=== PATIENT | female | born 1930 | race American Indian/Alaskan Native ===

== ENCOUNTER 2017-01-05 20:58 | Emergency (ER) | payer MEDICARE ==
--- NOTE | 2017-01-05 21:23 | Emergency Department Report ---
ED General Adult HPI - General Stated complaint: SEIZURE LIKE ACTIVITY Time Seen by Provider: 01/05/17 21:03 Limitations: Altered Mental Status - History of Present Illness Initial comments: This is a very cute little 82 coming from a snf who apparently had a seizure. I do not have the details involved the seizure however she does apparently have occasional seizures. She is not on any education for this but she did present to our ED last March with a similar presentation. The patient to me describes pain in the left frontal scalp area otherwise states that she is feeling fine. She denies any specific weakness. Of note she is a poor historian in general due to her dementia. She's been eating and drinking fine today otherwise feeling well. -: Sudden Radiation: non-radiation Severity scale (0 -10): 2 Worsens with: none Associated Symptoms: headaches. denies: chest pain, loss of appetite, shortness of breath - Related Data Home Medications Medication Instructions Recorded Confirmed Last Taken ALBUTEROL NEB's [Proventil] 2.5 mg IH Q6H PRN 03/24/16 03/24/16 Unknown Acetaminophen [Tylenol] 650 mg PO Q6HR PRN 03/24/16 03/24/16 Unknown Alendronate Sodium [Fosamax] 70 mg PO QAM 03/24/16 03/24/16 Unknown Budesonide [Pulmicort] 0.5 mg IH Q12HR 03/24/16 03/24/16 Unknown Divalproex Sodium [Divalproex 250 mg PO BID 03/24/16 03/24/16 Unknown Sodium ER] Donepezil HCl 5 mg PO QHS 03/24/16 03/24/16 Unknown ISOSORBIDE MONOnitrate [Imdur ER] 30 mg PO DAILY 03/24/16 03/24/16 Unknown LORazepam [Ativan] 0.5 mg PO Q6H PRN 03/24/16 03/24/16 Unknown QUEtiapine [SEROquel] 25 mg PO DAILY 03/24/16 03/24/16 Unknown QUEtiapine [SEROquel] 25 mg PO Q6H PRN 03/24/16 03/24/16 Unknown QUEtiapine [SEROquel] 50 mg PO QHS PRN 03/24/16 03/24/16 Unknown Sertraline HCl [Zoloft] 50 mg PO DAILY 03/24/16 03/24/16 Unknown Tiotropium [Spiriva] 18 mcg IH QDAY 03/24/16 03/24/16 Unknown Verapamil [Calan] 120 mg PO DAILY 03/24/16 03/24/16 Unknown guaiFENesin DM [Robitussin Dm] 10 ml PO Q6HR PRN 03/24/16 03/24/16 Unknown Allergies Allergy/AdvReac Type Severity Reaction Status Date / Time No Known Allergies Allergy Unverified 03/24/16 14:56 ED Review of Systems ROS: Stated complaint: SEIZURE LIKE ACTIVITY Other details as noted in HPI Comment: Unobtainable due to pts medical conditions (due to dementia) Constitutional: denies: fever Eyes: denies: vision change ENT: denies: throat pain Respiratory: denies: cough Cardiovascular: denies: chest pain, dyspnea on exertion Gastrointestinal: denies: abdominal pain, nausea, vomiting Neurological: headache. denies: weakness ED Past Medical Hx - Past Medical History Hx Hypertension: Yes Hx CVA: Yes Hx Psychiatric Treatment: Yes (depression) Hx COPD: Yes Hx Dementia: Yes Additional medical history: "I've had a seizure once before".. no meds - Social History Smoking Status: Never Smoker Substance Use Type: None - Medications Home Medications: Home Medications Medication Instructions Recorded Confirmed Last Taken Type ALBUTEROL NEB's [Proventil] 2.5 mg IH Q6H PRN 03/24/16 03/24/16 Unknown History Acetaminophen [Tylenol] 650 mg PO Q6HR PRN 03/24/16 03/24/16 Unknown History Alendronate Sodium [Fosamax] 70 mg PO QAM 03/24/16 03/24/16 Unknown History Budesonide [Pulmicort] 0.5 mg IH Q12HR 03/24/16 03/24/16 Unknown History Divalproex Sodium [Divalproex 250 mg PO BID 03/24/16 03/24/16 Unknown History Sodium ER] Donepezil HCl 5 mg PO QHS 03/24/16 03/24/16 Unknown History ISOSORBIDE MONOnitrate [Imdur ER] 30 mg PO DAILY 03/24/16 03/24/16 Unknown History LORazepam [Ativan] 0.5 mg PO Q6H PRN 03/24/16 03/24/16 Unknown History QUEtiapine [SEROquel] 25 mg PO DAILY 03/24/16 03/24/16 Unknown History QUEtiapine [SEROquel] 25 mg PO Q6H PRN 03/24/16 03/24/16 Unknown History QUEtiapine [SEROquel] 50 mg PO QHS PRN 03/24/16 03/24/16 Unknown History Sertraline HCl [Zoloft] 50 mg PO DAILY 03/24/16 03/24/16 Unknown History Tiotropium [Spiriva] 18 mcg IH QDAY 03/24/16 03/24/16 Unknown History Verapamil [Calan] 120 mg PO DAILY 03/24/16 03/24/16 Unknown History guaiFENesin DM [Robitussin Dm] 10 ml PO Q6HR PRN 03/24/16 03/24/16 Unknown History ED Physical Exam - General General appearance: alert, in no apparent distress - Head Head exam: Present: atraumatic, normocephalic, other (no tenderness to palpation. No temporal artery region tenderness.) - Eye Eye exam: Present: normal appearance, EOMI, other (4 mm sluggish pupils bilaterally.). Absent: scleral icterus - ENT ENT exam: Present: mucous membranes dry, mucous membranes moist, other (no oral lesions noted. Poor dentition in general.) - Neck Neck exam: Present: normal inspection, full ROM, other (no posterior neck tenderness.). Absent: meningismus, lymphadenopathy - Respiratory Respiratory exam: Present: normal lung sounds bilaterally. Absent: respiratory distress - Cardiovascular Cardiovascular Exam: Present: regular rate, normal rhythm. Absent: systolic murmur, diastolic murmur, rubs, gallop - GI/Abdominal GI/Abdominal exam: Present: soft, normal bowel sounds. Absent: tenderness, guarding - Extremities Exam Extremities exam: Present: normal inspection - Back Exam Back exam: Present: normal inspection - Neurological Exam Neurological exam: Present: alert, other ( hand readily with the right hand. Has moderate to good strength noted in the right leg as well. Has seen any weakness in the left arm and leg. Is able to slowly correct her left hand toward me but has some difficulty with this task.) - Psychiatric Psychiatric exam: Present: normal affect, normal mood - Skin Skin exam: Present: warm, dry, intact, normal color. Absent: rash ED Course Vital Signs 04/05/17 04/05/17 04/05/17 21:22 21:30 21:40 Temperature 97.8 F Pulse Rate 69 70 67 Respiratory 15 12 12 Rate Blood Pressure 110/62 O2 Sat by Pulse 98 98 Oximetry 01/05/17 01/05/17 01/05/17 21:50 22:00 22:10 Temperature Pulse Rate 67 66 Respiratory 13 13 12 Rate Blood Pressure 106/66 106/66 107/51 O2 Sat by Pulse 100 98 Oximetry 01/05/17 01/05/17 01/06/17 23:46 23:50 00:00 Temperature Pulse Rate 69 Respiratory 12 13 Rate Blood Pressure 107/51 107/51 143/75 O2 Sat by Pulse 97 99 98 Oximetry 01/06/17 01/06/17 01/06/17 00:10 00:20 00:30 Temperature Pulse Rate 64 64 Respiratory 14 9 L Rate Blood Pressure 143/75 107/51 132/72 O2 Sat by Pulse 99 100 99 Oximetry - Reevaluation(s) Reevaluation #1: 01/05/17 22:13 I did report U the ED notes from March of last year. Full workup was done and no infectious etiology was noted. Patient does not have a known seizure disorder. My suspicion with this second seizure is that she likely has some conversion with the prior stroke that she has had as the etiology and the impetus for the seizure. I'm not inclined to start her on anticonvulsants at this time. I feel that she is finding continue with her current regimen of medications. She appears to be essentially at her baseline from a neuro logical and mental status standpoint. ED Medical Decision Making - Lab Data Result diagrams: 01/05/17 22:56 01/05/17 22:56 Critical care attestation.: If time is entered above; I have spent that time in minutes in the direct care of this critically ill patient, excluding procedure time. ED Disposition Clinical Impression: Seizure, Renal insufficiency Disposition: DISCHARGED TO HOME OR SELFCARE Is pt being admited?: No Does the pt Need Aspirin: No Condition: Stable Additional Instructions: Your depakote level is 26. This is low. Consider increasing the dose on the depakote. Referrals: MARY VALLE MD [Primary Care Provider] - 3-5 Days Time of Disposition: 00:43
[2017-01-05] MEDS ORDERED: NACL 0.9% 1000 ML 1,000 ML IV ONE (21:49)
--- NOTE | 2017-01-05 23:01 | Cat Scan Report ---
FINAL REPORT PROCEDURE: CT HEAD/BRAIN WO CON TECHNIQUE: Computerized tomography of the head was performed without contrast material. HISTORY: seizure COMPARISON: Prior CT scan of the brain 03/24/2016 FINDINGS: Brain: There is no evidence of intracranial hemorrhage. No parenchymal hemorrhage is seen. No mass lesions or mass effect is identified. No abnormal extra-axial fluid collections or masses are seen. Stable old area of encephalomalacia again visualized in the left occipital lobe. There is a new area of mature encephalomalacia seen in the right occipital lobe which was not visualized on the prior study. Small old area of encephalomalacia also again visualized in the right periventricular white matter extending inferiorly into the inferior lateral aspect of the right basal ganglia which is unchanged. Additional small old lacunar infarcts seen medially in the right basal ganglia. There is some decreased density seen in the periventricular white matter without mass effect. This is fairly symmetric and does not exhibit any mass effect consistent with gliosis probably on the basis of microvascular disease or white matter changes of aging. Ventricles: The ventricles, sulcal pattern and fissures are prominent consistent with atrophy. Bones: No evidence of acute fracture. Paranasal sinuses: Nodular mucosal thickening is visualized in both maxillary sinuses as well as small amount of fluid in both maxillary sinuses. There is also a small amount of fluid in both sphenoid sinuses and patchy mucosal disease in several of the ethmoid air cells. Mastoid air cells: clear IMPRESSION: Old areas of encephalomalacia again visualize left occipital lobe right periventricular white matter extending into the lateral aspect of the right basal ganglia and small old lacunar infarct medial aspect right basal ganglia. There is a new, however, mature area of encephalomalacia now seen in the right occipital lobe. No acute intracranial abnormalities are identified. There is evidence of moderate atrophy and gliosis. Paranasal sinus disease with mucosal thickening and air-fluid level suggesting acute sinusitis.
[2017-01-05 23:13] LABS: Basophils % (Auto) 0.3 % (0.0-1.8); Eosinophils % (Auto) 2.2 % (0.0-4.3); Hematocrit 38.5 % (30.3-42.9); Hemoglobin 12.7 gm/dl (10.1-14.3); Mean Corpuscular HGB Conc 33 % (30-34); Mean Corpuscular Hemoglobin 29 pg (28-32); Mean Corpuscular Volume 89 fl (79-97); Platelet Count 143 K/mm3 (140-440); Red Blood Count 4.35 M/mm3 (3.65-5.03)
[2017-01-05 23:32] LABS: Albumin 3.5 g/dL (3.9-5); Albumin/Globulin Ratio 1.2 %; Alkaline Phosphatase 60 units/L (35-129); Anion Gap 17 mmol/L; BUN/Creatinine Ratio 14.61; Bilirubin,Total 0.3 mg/dL (0.1-1.2); Blood Urea Nitrogen 19 mg/dL (7-17); Calcium 8.6 mg/dL (8.4-10.2); Carbon Dioxide 25 mmol/L (22-30); Chloride 101.7 mmol/L (98-107); Glucose 105 mg/dL (65-100); Potassium 3.6 mmol/L (3.6-5.0); Sodium 140 mmol/L (137-145); Total Protein 6.5 g/dL (6.3-8.2)
[2017-01-05 23:50] LABS: Alanine Aminotransferase < 5 units/L (7-56)
[2017-01-06 00:23] LABS: Bilirubin,Urine NEG (Negative); Blood,Urine SM (Negative); Ketones,Urine NEG (Negative); Leukocyte Esterase,Urine TR (Negative); Nitrite,Urine NEG (Negative); Protein,Urine <15 mg/dL mg/dL (Negative); RBC,Urine < 1.0 /HPF (0.0-6.0); Urobilinogen,Urine < 2.0 mg/dL (<2.0); WBC,Urine < 1.0 /HPF (0.0-6.0)
[2017-01-06 01:18] VITALS: BP 130/67
== END 2017-01-06 02:12 | disposition home or self-care (01) ==
LOC: ED 20:58
DX: R56.9 Unspecified convulsions (principal); N28.9 Disorder of kidney and ureter, unspecified; I10 Essential (primary) hypertension; F03.90 Unspecified dementia, unspecified severity, without behavioral disturbance, psychotic disturbance, mood disturbance, and anxiety; F31.9 Bipolar disorder, unspecified; Z86.73 Personal history of transient ischemic attack (TIA), and cerebral infarction without residual deficits
CPT/HCPCS: 36415; 70450; 80053; 80164; 81001; 85025; 96360; 99284; J7030

== ENCOUNTER 2017-01-08 08:43 | Emergency (ER) | payer MEDICARE ==
[2017-01-08 10:00] LABS: Bacteria,Urine 1+ /HPF (Negative); Bilirubin,Urine NEG (Negative); Blood,Urine SM (Negative); Ketones,Urine NEG (Negative); Leukocyte Esterase,Urine TR (Negative); Nitrite,Urine NEG (Negative); Protein,Urine <15 mg/dL mg/dL (Negative); Urobilinogen,Urine < 2.0 mg/dL (<2.0)
--- NOTE | 2017-01-08 10:06 | Cat Scan Report ---
CT HEAD WITHOUT CONTRAST: HISTORY: Head injury. A right frontoparietal scalp hematoma is identified measuring 1.2 cm in thickness. There is no evidence for calvarial fracture. Moderate volume loss, chronic White matter changes, bilateral chronic lacunar infarcts in the basal ganglia, and bilateral occipital infarcts are unchanged since 01/05/17. There is no evidence for intraparenchymal hemorrhage or extra-axial fluid collection. Ventricular size remains within normal limits. Advanced sinus disease is again noted. IMPRESSION: Right scalp hematoma. No acute intracranial process appreciated. Chronic findings as outlined above.
--- NOTE | 2017-01-08 10:08 | Cat Scan Report ---
CT SCAN OF THE CERVICAL SPINE: HISTORY: Neck pain after fall, injury. TECHNIQUE: Contiguous 1.25 mm axial images of the cervical spine were obtained. Sagittal and coronal reformatted images. FINDINGS: There is mild levoscoliosis of the cervical spine on the coronal images. Moderate to severe multilevel degenerative disc disease and facet arthropathy are identified. Bilateral neural foraminal narrowing is suspected at C5-6 and C6-7. No obvious fracture, bone lesion or subluxation. The prevertebral soft tissues are normal thickness. IMPRESSION: Scoliosis with advanced multilevel degenerative change. No acute process is noted.
[2017-01-08] MEDS ORDERED: BOOSTRIX IM ONE (10:13)
--- NOTE | 2017-01-08 10:13 | Emergency Department Report ---
ED Fall HPI - General Chief Complaint: Head Injury Stated Complaint: FALL AND HIT HEAD Time Seen by Provider: 01/08/17 09:15 Source: patient, EMS, RN notes reviewed Mode of arrival: Stretcher Limitations: Other (patient partially demented, poor historian.) - History of Present Illness Initial Comments: This is an 86-year-old female. She is previously known to me. She is brought to the hospital by EMS from local [facility]. Past medical history includes COPD, hypertension, dementia, advanced age. Primary care DrSukumar Valle Case is discussed with the nurse at the facility, Ms. Kylah Schuler. Miss Bates indicates that the patient was seen in bed at 7:00 AM. She was found on the floor at 7:15 AM. Uncertain how the patient ended up on the floor. The patient does not recall falling on the floor. The patient claims of mild headache. There is no chest pain, there is no shortness of breath, there is no abdominal pain. Patient has no extremity weakness, patient has no extremity numbness. Patient is currently alert to name and location, follows commands and is pleasant. As per corroborating nurse Miss Bates, this is the patient's typical baseline status. Patient has not complained of chest pain, shortness of breath, has not specifically complained of loss of consciousness. MD Complaint: fall (possible fall) When Fall Occurred: unsure, 1 hour [employer] Fall Witnessed: no Place Fall Occurred: [facility] Loss of Consciousness: none, unsure Prolonged Down Time?: no Symptoms Prior to Fall: none Location: head Quality: other (patient cannot describe the qualitative nature of the pain, cannot describe exacerbating or relieving factors) Context: other (as per history of present illness) Associated Symptoms: headache - Related Data Home Medications Medication Instructions Recorded Confirmed Last Taken ALBUTEROL NEB's [Proventil] 2.5 mg IH Q6H PRN 03/24/16 03/24/16 Unknown Acetaminophen [Tylenol] 650 mg PO Q6HR PRN 03/24/16 03/24/16 Unknown Alendronate Sodium [Fosamax] 70 mg PO QAM 03/24/16 03/24/16 Unknown Budesonide [Pulmicort] 0.5 mg IH Q12HR 03/24/16 03/24/16 Unknown Divalproex Sodium [Divalproex 250 mg PO BID 03/24/16 03/24/16 Unknown Sodium ER] Donepezil HCl 5 mg PO QHS 03/24/16 03/24/16 Unknown ISOSORBIDE MONOnitrate [Imdur ER] 30 mg PO DAILY 03/24/16 03/24/16 Unknown LORazepam [Ativan] 0.5 mg PO Q6H PRN 03/24/16 03/24/16 Unknown QUEtiapine [SEROquel] 25 mg PO DAILY 03/24/16 03/24/16 Unknown QUEtiapine [SEROquel] 25 mg PO Q6H PRN 03/24/16 03/24/16 Unknown QUEtiapine [SEROquel] 50 mg PO QHS PRN 03/24/16 03/24/16 Unknown Sertraline HCl [Zoloft] 50 mg PO DAILY 03/24/16 03/24/16 Unknown Tiotropium [Spiriva] 18 mcg IH QDAY 03/24/16 03/24/16 Unknown Verapamil [Calan] 120 mg PO DAILY 03/24/16 03/24/16 Unknown guaiFENesin DM [Robitussin Dm] 10 ml PO Q6HR PRN 03/24/16 03/24/16 Unknown Previous Rx's Medication Instructions Recorded Last Taken Type Nitrofurantoin Dundy/M-Cryst 100 mg PO Q12HR #14 capsule 01/08/17 Unknown Rx [Macrobid CAP] Allergies Allergy/AdvReac Type Severity Reaction Status Date / Time No Known Allergies Allergy Unverified 03/24/16 14:56 ED Review of Systems ROS: Stated complaint: FALL AND HIT HEAD Other details as noted in HPI Comment: Unobtainable due to pts medical conditions ([facility]) Constitutional: denies: fever Eyes: denies: vision change ENT: denies: epistaxis Respiratory: denies: cough Cardiovascular: denies: chest pain Gastrointestinal: nausea Genitourinary: as per HPI Skin: lesions Neurological: as per HPI Psychiatric: as per HPI Hematological/Lymphatic: as per HPI ED Past Medical Hx - Past Medical History Hx Hypertension: Yes Hx CVA: Yes Hx Psychiatric Treatment: Yes (depression, dementia) Hx COPD: Yes Hx Dementia: Yes Additional medical history: "I've had a seizure once before".. no meds - Social History Smoking Status: Never Smoker Substance Use Type: None - Medications Home Medications: Home Medications Medication Instructions Recorded Confirmed Last Taken Type ALBUTEROL NEB's [Proventil] 2.5 mg IH Q6H PRN 03/24/16 03/24/16 Unknown History Acetaminophen [Tylenol] 650 mg PO Q6HR PRN 03/24/16 03/24/16 Unknown History Alendronate Sodium [Fosamax] 70 mg PO QAM 03/24/16 03/24/16 Unknown History Budesonide [Pulmicort] 0.5 mg IH Q12HR 03/24/16 03/24/16 Unknown History Divalproex Sodium [Divalproex 250 mg PO BID 03/24/16 03/24/16 Unknown History Sodium ER] Donepezil HCl 5 mg PO QHS 03/24/16 03/24/16 Unknown History ISOSORBIDE MONOnitrate [Imdur ER] 30 mg PO DAILY 03/24/16 03/24/16 Unknown History LORazepam [Ativan] 0.5 mg PO Q6H PRN 03/24/16 03/24/16 Unknown History QUEtiapine [SEROquel] 25 mg PO DAILY 03/24/16 03/24/16 Unknown History QUEtiapine [SEROquel] 25 mg PO Q6H PRN 03/24/16 03/24/16 Unknown History QUEtiapine [SEROquel] 50 mg PO QHS PRN 03/24/16 03/24/16 Unknown History Sertraline HCl [Zoloft] 50 mg PO DAILY 03/24/16 03/24/16 Unknown History Tiotropium [Spiriva] 18 mcg IH QDAY 03/24/16 03/24/16 Unknown History Verapamil [Calan] 120 mg PO DAILY 03/24/16 03/24/16 Unknown History guaiFENesin DM [Robitussin Dm] 10 ml PO Q6HR PRN 03/24/16 03/24/16 Unknown History Nitrofurantoin Dundy/M-Cryst 100 mg PO Q12HR #14 capsule 01/08/17 Unknown Rx [Macrobid CAP] ED Physical Exam - General Limitations: Other (patient demented, poor historian. She is pleasant, follows commands) General appearance: alert, in no apparent distress - Head Head exam: Present: atraumatic, normocephalic - Eye Eye exam: Present: normal appearance, EOMI, other (bilateral arcus senilis) - ENT ENT exam: Present: normal exam, normal orophraynx, mucous membranes moist, TM's normal bilaterally, normal external ear exam, other (patient has poor dentition. There is no nasal septal hematoma. There is no hemotympanum.) - Neck Neck exam: Present: normal inspection, full ROM. Absent: tenderness, meningismus - Respiratory Respiratory exam: Present: normal lung sounds bilaterally. Absent: respiratory distress, wheezes, rales, rhonchi, stridor, decreased breath sounds - Cardiovascular Cardiovascular Exam: Present: regular rate, normal rhythm, normal heart sounds. Absent: bradycardia, tachycardia, irregular rhythm, systolic murmur, diastolic murmur, rubs, gallop - GI/Abdominal GI/Abdominal exam: Present: soft, normal bowel sounds. Absent: distended, tenderness, guarding, rebound, rigid, pulsatile mass - Extremities Exam Extremities exam: Present: normal inspection, full ROM, normal capillary refill , other (is no long bony tenderness. The pelvis is stable. Compartments are soft. There are 2+ pulses in 4 extremities.). Absent: tenderness, pedal edema , joint swelling, calf tenderness - Back Exam Back exam: Present: normal inspection, full ROM. Absent: tenderness, CVA tenderness (R), CVA tenderness (L), muscle spasm, paraspinal tenderness, vertebral tenderness - Neurological Exam Neurological exam: Present: alert, oriented X3, other (Extraocular movements intact. Tongue midline. No facial droop. Facial sensation intact to light touch in the V1, V2, V3 distribution bilaterally. 5 and 5 strength in 4 extremities.. Sensation is intact to light touch in 4 extremities.). Absent: motor sensory deficit - Psychiatric Psychiatric exam: Present: normal affect, normal mood - Skin Skin exam: Present: warm, dry, intact, normal color. Absent: rash ED Course Vital Signs 01/08/17 01/08/17 01/08/17 09:12 11:30 12:07 Temperature 98 F 98 F Pulse Rate 73 72 70 Respiratory 13 16 16 Rate Blood Pressure 169/83 183/91 196/99 [Right] O2 Sat by Pulse 100 100 100 Oximetry 01/08/17 14:37 Temperature Pulse Rate 72 Respiratory 16 Rate Blood Pressure 168/99 [Right] O2 Sat by Pulse 96 Oximetry - Reevaluation(s) Reevaluation #1: 01/08/17 11:56 Differential diagnosis: Mechanical fall, scalp hematoma, intracranial injury, cervical spine injury, pneumonia, urinary tract infection assessment and plan: 86-year-old female status post probable mechanical fall. She has been observed in the ER for over 4 hours, and has had normal vital signs , no evidence of arrhythmia. Her neurologic exam appears to be at her baseline. She is given a tetanus vaccination. Urinalysis is equivocal for urinary tract infection. She will be discharged with Macrobid. Her EKG is morphologically unchanged from prior. I don't believe she requires hospital admission at this time. She will be discharged. Return precautions are extensively reviewed. 01/08/17 11:59 Reevaluation #2: 01/08/17 12:22 hypertension is appreciated, this is chronic. Patient is asymptomatic. Patient does not medically require emergent decrease of her blood pressure. it can be followed up by her outpatient primary care doctor. ED Medical Decision Making - Lab Data Result diagrams: 01/08/17 10:19 01/08/17 10:19 Vital Signs 01/08/17 09:12 Temperature 98 F Pulse Rate 73 Respiratory 13 Rate Blood Pressure 169/83 [Right] O2 Sat by Pulse 100 Oximetry Lab Results 01/08/17 01/08/17 01/08/17 Range/Units 09:41 10:19 10:19 WBC 7.3 (4.5-11.0) K/mm3 RBC 4.44 (3.65-5.03) M/mm3 Hgb 12.7 (10.1-14.3) gm/dl Hct 39.0 (30.3-42.9) % MCV 88 (79-97) fl MCH 29 (28-32) pg MCHC 33 (30-34) % RDW 16.1 H (13.2-15.2) % Plt Count 154 (140-440) K/mm3 PT 14.2 (12.2-14.9) Sec. INR 1.11 (0.87-1.13) Sodium (137-145) mmol/L Potassium (3.6-5.0) mmol/L Chloride (98-107) mmol/L Carbon Dioxide (22-30) mmol/L Anion Gap mmol/L BUN (7-17) mg/dL Creatinine (0.7-1.2) mg/dL Estimated GFR ml/min BUN/Creatinine Ratio % Glucose (65-100) mg/dL Calcium (8.4-10.2) mg/dL Total Creatine Kinase (30-135) units/L Urine Color Straw (Yellow) Urine Turbidity Clear (Clear) Urine pH 7.0 (5.0-7.0) Ur Specific [place] 1.012 (1.003-1.030) Urine Protein <15 mg/dl (Negative) mg/dL Urine Glucose (UA) Neg (Negative) mg/dL Urine Ketones Neg (Negative) mg/dL Urine Blood Sm (Negative) Urine Nitrite Neg (Negative) Urine Bilirubin Neg (Negative) Urine Urobilinogen < 2.0 (<2.0) mg/dL Ur Leukocyte Esterase Tr (Negative) Urine WBC (Auto) 11.0 H (0.0-6.0) /HPF Urine RBC (Auto) 9.0 (0.0-6.0) /HPF U Epithel Cells (Auto) < 1.0 (0-13.0) /HPF Urine Bacteria (Auto) 1+ (Negative) /HPF Hyaline Casts 1 /LPF Valproic Acid (50-100) ug/mL 01/08/17 01/08/17 Range/Units 10:19 10:19 WBC (4.5-11.0) K/mm3 RBC (3.65-5.03) M/mm3 Hgb (10.1-14.3) gm/dl Hct (30.3-42.9) % MCV (79-97) fl MCH (28-32) pg MCHC (30-34) % RDW (13.2-15.2) % Plt Count (140-440) K/mm3 PT (12.2-14.9) Sec. INR (0.87-1.13) Sodium 140 (137-145) mmol/L Potassium 4.6 D (3.6-5.0) mmol/L Chloride 102.0 (98-107) mmol/L Carbon Dioxide 27 (22-30) mmol/L Anion Gap 16 mmol/L BUN 16 (7-17) mg/dL Creatinine 1.1 (0.7-1.2) mg/dL Estimated GFR 57 ml/min BUN/Creatinine Ratio 14.54 % Glucose 82 (65-100) mg/dL Calcium 8.6 (8.4-10.2) mg/dL Total Creatine Kinase 118 (30-135) units/L Urine Color (Yellow) Urine Turbidity (Clear) Urine pH (5.0-7.0) Ur Specific [place] (1.003-1.030) Urine Protein (Negative) mg/dL Urine Glucose (UA) (Negative) mg/dL Urine Ketones (Negative) mg/dL Urine Blood (Negative) Urine Nitrite (Negative) Urine Bilirubin (Negative) Urine Urobilinogen (<2.0) mg/dL Ur Leukocyte Esterase (Negative) Urine WBC (Auto) (0.0-6.0) /HPF Urine RBC (Auto) (0.0-6.0) /HPF U Epithel Cells (Auto) (0-13.0) /HPF Urine Bacteria (Auto) (Negative) /HPF Hyaline Casts /LPF Valproic Acid 55.6 (50-100) ug/mL - EKG Data -: EKG Interpreted by Mt EKG shows normal: sinus rhythm, axis (left axis) - EKG Data Interpretation: unchanged when compared t (24 march 2016) 01/08/17 11:57 Normal sinus, 69 bpm, QTC 465 ms, left axis deviation, poor R wave progression, not morphologically consistent with STEMI, appears unchanged when compared to prior EKG from 03/24/2016 01/08/17 11:59 - Radiology Data Radiology results: report reviewed, image reviewed ct head shows hematoma on scalp ct c spine neg xr chest negative xr pelvis negative Critical care attestation.: If time is entered above; I have spent that time in minutes in the direct care of this critically ill patient, excluding procedure time. ED Disposition Clinical Impression: Fall, Scalp hematoma Disposition: DC/TX ANOTHER TYPE HEALTHCARE Is pt being admited?: No Does the pt Need Aspirin: No Condition: Good Instructions: Fall Prevention (ED) Additional Instructions: Continue current outpatient medications. Follow up with primary care physician within the next 3-5 days. Take antibiotics as directed for possible urinary tract infection. Return to the ER right away with fevers and chills, chest pain or shortness of breath, intractable nausea or vomiting, convulsive activity , inability to tolerate liquid feeds, new, worsening or different symptoms. Prescriptions: Nitrofurantoin Dundy/M-Cryst [Macrobid CAP] 100 mg PO Q12HR #14 capsule Referrals: MARY VALLE MD [Primary Care Provider] - 3-5 Days
[2017-01-08 10:28] LABS: Hemoglobin 12.7 gm/dl (10.1-14.3); Mean Corpuscular HGB Conc 33 % (30-34); Mean Corpuscular Hemoglobin 29 pg (28-32); Mean Corpuscular Volume 88 fl (79-97); Platelet Count 154 K/mm3 (140-440); Red Blood Count 4.44 M/mm3 (3.65-5.03); Red Cell Distribution Width 16.1 % (13.2-15.2); White Blood Count 7.3 K/mm3 (4.5-11.0)
[2017-01-08 10:44] LABS: INR 1.11 (0.87-1.13)
[2017-01-08 10:46] LABS: BUN/Creatinine Ratio 14.54; Calcium 8.6 mg/dL (8.4-10.2); Potassium 4.6 mmol/L (3.6-5.0)
--- NOTE | 2017-01-08 11:02 | XRay Report ---
AP PELVIS: History: Hip pain, pelvic pain after fall. AP view of the pelvis shows normal pelvic contour and soft tissues. The hips are symmetric and within normal limits as are the sacroiliac joints. IMPRESSION: Normal pelvis.
--- NOTE | 2017-01-08 11:02 | XRay Report ---
AP CHEST: HISTORY: chest pain AP view of the chest demonstrates a normal mediastinal and cardiac contour with clear lungs and normal bony and soft tissue structures. IMPRESSION: No acute cardiopulmonary process appreciated.
[2017-01-08 14:38] VITALS: BP 168/99
== END 2017-01-08 14:38 | disposition other institution (70) ==
LOC: ED 08:43
DX: S00.03XA Contusion of scalp, initial encounter (principal); W18.30XA Fall on same level, unspecified, initial encounter; Y93.9 Activity, unspecified; Y92.9 Unspecified place or not applicable; Y99.9 Unspecified external cause status; I10 Essential (primary) hypertension; J44.9 Chronic obstructive pulmonary disease, unspecified; F03.90 Unspecified dementia, unspecified severity, without behavioral disturbance, psychotic disturbance, mood disturbance, and anxiety
CPT/HCPCS: 36415; 70450; 71010; 72125; 72170; 80048; 80164; 81001; 82550; 85027; 85610; 90471; 90715; 93005; 93010; 99285

== ENCOUNTER 2021-03-03 18:48 | Emergency (ER) | payer MEDICARE ==
--- NOTE | 2021-03-03 19:31 | Emergency Department Report ---
HPI - General Chief Complaint: Fall Time Seen by Provider: 03/03/21 19:19 - HPI HPI: This is an 89-year-old -[place] female who presents to the emergency department via EMS from her [facility] long-term facility after she had an unwitnessed fall from bed, which was about 2 feet high. The patient has a history of dementia, schizophrenia, COPD, and is AAO x1 to name only. Initially, for EMS, she complained of some low back pain. During my initial examination the patient has no complaints. [facility] told EMS that it is their policy to send in any unwitnessed fall to the emergency department for evaluation. The patient is a poor historian secondary to her chronic medical conditions. There is no obvious evidence of trauma. ED Past Medical Hx - Past Medical History Hx Hypertension: Yes Hx CVA: Yes Hx Psychiatric Treatment: Yes (depression, dementia) Hx COPD: Yes Hx Dementia: Yes Additional medical history: "I've had a seizure once before".. no meds - Social History Smoking Status: Never Smoker - Medications Home Medications: Home Medications Medication Instructions Recorded Confirmed Last Taken Type ALBUTEROL NEB's [Proventil] 2.5 mg IH Q6H PRN 03/24/16 03/24/16 Unknown History Acetaminophen [Tylenol] 650 mg PO Q6HR PRN 03/24/16 03/24/16 Unknown History Alendronate Sodium [Fosamax] 70 mg PO QAM 03/24/16 03/24/16 Unknown History Budesonide [Pulmicort] 0.5 mg IH Q12HR 03/24/16 03/24/16 Unknown History Divalproex Sodium [Divalproex 250 mg PO BID 03/24/16 03/24/16 Unknown History Sodium ER] Donepezil HCl 5 mg PO QHS 03/24/16 03/24/16 Unknown History ISOSORBIDE MONOnitrate [Imdur ER] 30 mg PO DAILY 03/24/16 03/24/16 Unknown History LORazepam [Ativan] 0.5 mg PO Q6H PRN 03/24/16 03/24/16 Unknown History QUEtiapine [SEROquel] 25 mg PO DAILY 03/24/16 03/24/16 Unknown History QUEtiapine [SEROquel] 25 mg PO Q6H PRN 03/24/16 03/24/16 Unknown History QUEtiapine [SEROquel] 50 mg PO QHS PRN 03/24/16 03/24/16 Unknown History Sertraline HCl [Zoloft] 50 mg PO DAILY 03/24/16 03/24/16 Unknown History Tiotropium [Spiriva] 18 mcg IH QDAY 03/24/16 03/24/16 Unknown History guaiFENesin DM [Robitussin Dm] 10 ml PO Q6HR PRN 03/24/16 03/24/16 Unknown History verapamiL [Calan] 120 mg PO DAILY 03/24/16 03/24/16 Unknown History Nitrofurantoin [place]/M-Cryst 100 mg PO Q12HR #14 capsule 01/08/17 Unknown Rx [Macrobid CAP] ED Review of Systems ROS: Stated complaint: FALL/LOWER BACK PAIN Other details as noted in HPI Comment: Unobtainable due to pts medical conditions Physical Exam - Physical Exam Vital Signs: Vital Signs 03/03/21 19:23 Temperature 98.7 F Pulse Rate 77 Respiratory 20 Rate Blood Pressure 154/79 O2 Sat by Pulse 100 Oximetry Physical Exam: GENERAL: The patient is well-developed well-nourished. HENT: Normocephalic. Atraumatic. Patient has moist mucous membranes. EYES: Extraocular motions are intact. NECK: Supple. Trachea is midline. CHEST/LUNGS: Clear to auscultation. There is no respiratory distress noted. HEART/CARDIOVASCULAR: Regular. There is no tachycardia. There is no murmur. ABDOMEN: Abdomen is soft, nontender. Patient has normal bowel sounds. There is no abdominal distention. SKIN: Skin is warm and dry. NEURO: The patient is awake and cooperative, but confused. AAO x1. Cranial nerves II through XII grossly intact. No facial asymmetry. MUSCULOSKELETAL: There is no tenderness or deformity. There is no limitation range of motion. BACK: No midline thoracic or lumbar tenderness to palpation. ED Course Vital Signs 03/03/21 19:23 Temperature 98.7 F Pulse Rate 77 Respiratory 20 Rate Blood Pressure 154/79 O2 Sat by Pulse 100 Oximetry ED Medical Decision Making - Radiology Data Radiology results: report reviewed, image reviewed interpreted by me: Chest x-ray does not show any acute process. There are no pleural effusions, obvious pneumonia and there is no pneumothorax. No widened mediastinum. No obvious rib fractures. X-ray of the thoracic and lumbar spine do not show any fracture, subluxation, or any acute process. X-ray of the pelvis does not show any fracture, dislocation, or any acute process. NONENHANCED CT SCAN OF THE HEAD: INDICATION / CLINICAL INFORMATION: 89 years Female; MAIN. Trauma TECHNIQUE: Routine CT head without contrast. All CT scans at this location are performed using CT dose reduction for ALARA by means of automated exposure control. COMPARISON: None. FINDINGS: BRAIN / INTRACRANIAL CONTENTS: No intracranial sequela from the trauma; no scalp hematoma; no there is fluid accumulation in the in both maxillary sinuses, CT attenuation is is suggestive of serous fluid and not that of blood No acute hemorrhage, mass effect, midline shift, hydrocephalus, or acute, large territorial infarct. Encephalomalacia in both occipital lobes larger on the right side; en cephalomalacia in the right corpus stratum with compensatory enlargement of right frontal horn; chronic ischemic changes in the left basal ganglia; periventricular low-attenuation areas due to chronic small vessel disease ; CT findings unchanged CRANIOCERVICAL JUNCTION: No significant abnormality. ORBITS: No significant abnormality of visualized orbits. SINUSES / MASTOIDS: Accumulation in both maxillary sinuses; retention cyst in the left sphenoid sinus ADDITIONAL FINDINGS: None. IMPRESSION: No intracranial sequela from the trauma CT findings remain unchanged Exam: CT cervical spine History: Trauma; Technique: Contiguous thin cut axial images obtained through the cervical spine. Sagittal and coronal reconstructions performed by the technologist. All CT scans at this location are performed using CT dose reduction for ALARA by means of automated exposure control. Findings: CT scan of the cervical spine from 01/08/2017 There is no evidence of fracture or tr aumatic subluxation. Vertebral bodies are normal in height and alignment. Intervertebral disc spaces and C3-C4: Facet joint hypertrophic changes on the right side; right foraminal stenoses C4-C5: Loss of disc height; uncovertebral joint hypertrophy; bony spur; bilateral foraminal stenoses worse on the right side C5-C6: Bony spur more towards the right side of midline; neuroforamina are normal C6-C7: Normal neuroforamina Surrounding soft tissues are grossly normal. Impression: No signs of acute bony trauma to the cervical spine. - Medical Decision Making This patient presented from her nursing facility after she had an unwitnessed fall. Apparently the patient rolled and/or fell out of bed that was about 2 feet high off of the floor. She has a history of dementia and presents AAO x1- 2. No obvious signs of significant trauma. However, given this recent fall and her history of dementia, the patient had a CT scan of the head and cervical spine, as well as x-rays of the chest, pelvis, and thoracic/lumbar spine. None of the CT scans over the x-rays showed any acute processes. The patient is seen moving all of her extremities. Vital signs have been reassuring throughout her ED course. The patient will be discharged back to her long-term facility with instructions to follow-up with a PCP. Critical Care Time: No Critical care attestation.: If time is entered above; I have spent that time in minutes in the direct care of this critically ill patient, excluding procedure time. ED Disposition Clinical Impression: Fall Qualifiers: Encounter type: initial encounter Qualified Code(s): W19.XXXA - Unspecified fall, initial encounter Hypertension Qualifiers: Hypertension type: essential hypertension Qualified Code(s): I10 - Essential (primary) hypertension Disposition: DC- TO HOME OR SELFCARE Is pt being admited?: No Condition: Stable Instructions: Fall Prevention in the Home, Adult, [id number], Hypertension, Adult, Hypertension (ED) Additional Instructions: Please follow-up with the primary care physician in the next few days. Return to the emergency department with any worsening of your symptoms, new or concerning symptoms not addressed during this current emergency department visit, or with any acute distress. Referrals: PCP, Your [Other] - 2-3 Days Time of Disposition: 21:18
--- NOTE | 2021-03-03 20:06 | Cat Scan Report ---
Exam: CT cervical spine History: Trauma; Technique: Contiguous thin cut axial images obtained through the cervical spine. Sagittal and barrera l reconstructions performed by the technologist. All CT scans at this location are performed using CT dose reduction for ALARA by means of automated exposure control. Findings: CT scan of the cervical spine from 01/08/2017 There is no evidence of fracture or traumatic subluxation. Vertebral bodies are normal in height and alignment. Intervertebral disc spaces and C3-C4: Facet joint hypertrophic changes on the right side; right foraminal stenoses C4-C5: Loss of disc height; uncovertebral joint hypertrophy; bony spur; bilateral foraminal stenoses worse on the right side C5-C6: Bony spur more towards the right side of midline; neuroforamina are normal C6-C7: Normal neuroforamina Surrounding soft tissues are grossly normal. Impression: No signs of acute bony trauma to the cervical spine. Signer Name: Robert Gorman MD Signed: 03/03/2021 8:02 PM Workstation Name: [id number]
--- NOTE | 2021-03-03 20:08 | Cat Scan Report ---
NONENHANCED CT SCAN OF THE HEAD: INDICATION / CLINICAL INFORMATION: 89 years Female; MAIN. Trauma TECHNIQUE: Routine CT head without contrast. All CT scans at this location are performed using CT dos e reduction for ALARA by means of automated exposure control. COMPARISON: None. FINDINGS: BRAIN / INTRACRANIAL CONTENTS: No intracranial sequela from the trauma; no scalp hematoma; no there i s fluid accumulation in the in both maxillary sinuses, CT attenuation is is suggestive of serous flui d and not that of blood No acute hemorrhage, mass effect, midline shift, hydrocephalus, or acute, large territorial infarct. Encephalomalacia in both occipital lobes larger on the right side; encephalomalacia in the right sharlene us stratum with compensatory enlargement of right frontal horn; chronic ischemic changes in the left basal ganglia; periventricular low-attenuation areas due to chronic small vessel disease ; CT finding s unchanged CRANIOCERVICAL JUNCTION: No significant abnormality. ORBITS: No significant abnormality of visualized orbits. SINUSES / MASTOIDS: Accumulation in both maxillary sinuses; retention cyst in the left sphenoid sinus ADDITIONAL FINDINGS: None. IMPRESSION: No intracranial sequela from the trauma CT findings remain unchanged Signer Name: Robert Gorman MD Signed: 03/03/2021 8:03 PM Workstation Name: [id number]
--- NOTE | 2021-03-03 21:12 | XRay Report ---
XR spine lumbosacral 2-3V, XR spine thoracic 2V INDICATION / CLINICAL INFORMATION: Pain after fall COMPARISON: None available. 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 Mild thoracic kyphosis with mild chronic leonel earing anterior wedging. No evidence of acute fracture. Moderate multilevel thoracic spondylosis. Vis ualized lungs are clear. Lumbar spine: There is severe multilevel lumbar spondylosis. Vertebral body heights are intact. No ev idence of fracture. Signer Name: Don Hinkle MD Signed: 03/03/2021 9:08 PM Workstation Name: [id number]
--- NOTE | 2021-03-03 21:14 | XRay Report ---
PELVIS 1 VIEW(S) INDICATION / CLINICAL INFORMATION: MAIN COMPARISON: None available. FINDINGS: Diffuse osteopenia. No acute fracture. Bilateral hip osteoarthritis. No evidence of hip dislocation. No SI joint or pubic symphyseal diastases. IMPRESSION: No evidence of acute process in the pelvis. Signer Name: Don Hinkle MD Signed: 03/03/2021 9:09 PM Workstation Name: [id number]
--- NOTE | 2021-03-03 21:14 | XRay Report ---
XR chest 1V ap INDICATION / CLINICAL INFORMATION: Pain. COMPARISON: None available. FINDINGS: SUPPORT DEVICES: None. HEART /PULMONARY VASCULATURE: No significant abnormality. LUNGS / PLEURA: No significant pulmonary or pleural abnormality. No pneumothorax. ADDITIONAL FINDINGS: No significant additional findings. IMPRESSION: 1. No acute findings. Signer Name: Don Hinkle MD Signed: 03/03/2021 9:09 PM Workstation Name: [id number]
[2021-03-04 00:46] VITALS: BP 164/71
== END 2021-03-04 00:48 | disposition home or self-care (01) ==
LOC: ED 18:48
DX: I10 Essential (primary) hypertension (principal); F03.90 Unspecified dementia, unspecified severity, without behavioral disturbance, psychotic disturbance, mood disturbance, and anxiety; J44.9 Chronic obstructive pulmonary disease, unspecified; Z86.73 Personal history of transient ischemic attack (TIA), and cerebral infarction without residual deficits; Z79.899 Other long term (current) drug therapy; W06.XXXA Fall from bed, initial encounter; Y93.89 Activity, other specified; Y92.89 Other specified places as the place of occurrence of the external cause; Y99.8 Other external cause status
CPT/HCPCS: 70450; 71045; 72070; 72100; 72125; 72170

== ENCOUNTER 2021-04-07 15:11 | Emergency (ER) | payer MEDICARE ==
--- NOTE | 2021-04-07 16:59 | Emergency Department Report ---
ED Fall HPI - General Chief Complaint: Fall Stated Complaint: FALL Time Seen by Provider: 04/07/21 16:49 Source: EMS Mode of arrival: Stretcher - History of Present Illness Initial Comments: Ms. Brady is an 89 years old group home resident with history of dementia, hypertension and COPD. Patient brought to the emergency room via EMS from a local group home for evaluation after a fall. Facility staff stated that patient trying to get out of the bed and fell landed on her head. No loss of consciousness according to EMS report. Patient is complaining of pain in the back of her head. She denied any other pain. Patient denied any dizziness, chest pain, shortness of breath, abdominal pain, weakness numbness or tingling sensation. MD Complaint: fall -: Sudden, This afternoon Fall From: out of bed When Fall Occurred: just prior to arrival Fall Witnessed: yes, by living facility s Symptoms Prior to Fall: none Context: tripped/slipped Associated Symptoms: denies - Related Data Home Medications Medication Instructions Recorded Confirmed Last Taken ALBUTEROL NEB's [Proventil] 2.5 mg IH Q6H PRN 03/24/16 03/24/16 Unknown Acetaminophen [Tylenol] 650 mg PO Q6HR PRN 03/24/16 03/24/16 Unknown Alendronate Sodium [Fosamax] 70 mg PO QAM 03/24/16 03/24/16 Unknown Budesonide [Pulmicort] 0.5 mg IH Q12HR 03/24/16 03/24/16 Unknown Divalproex Sodium [Divalproex 250 mg PO BID 03/24/16 03/24/16 Unknown Sodium ER] Donepezil HCl 5 mg PO QHS 03/24/16 03/24/16 Unknown ISOSORBIDE MONOnitrate [Imdur ER] 30 mg PO DAILY 03/24/16 03/24/16 Unknown LORazepam [Ativan] 0.5 mg PO Q6H PRN 03/24/16 03/24/16 Unknown QUEtiapine [SEROquel] 25 mg PO DAILY 03/24/16 03/24/16 Unknown QUEtiapine [SEROquel] 25 mg PO Q6H PRN 03/24/16 03/24/16 Unknown QUEtiapine [SEROquel] 50 mg PO QHS PRN 03/24/16 03/24/16 Unknown Sertraline HCl [Zoloft] 50 mg PO DAILY 03/24/16 03/24/16 Unknown Tiotropium [Spiriva] 18 mcg IH QDAY 03/24/16 03/24/16 Unknown guaiFENesin DM [Robitussin Dm] 10 ml PO Q6HR PRN 03/24/16 03/24/16 Unknown verapamiL [Calan] 120 mg PO DAILY 03/24/16 03/24/16 Unknown Previous Rx's Medication Instructions Recorded Last Taken Type Nitrofurantoin [place]/M-Cryst 100 mg PO Q12HR #14 capsule 01/08/17 Unknown Rx [Macrobid CAP] Allergies Allergy/AdvReac Type Severity Reaction Status Date / Time No Known Allergies Allergy Unverified 03/24/16 14:56 ED Review of Systems ROS: Stated complaint: FALL Other details as noted in HPI Comment: All other systems reviewed and negative Constitutional: denies: chills Respiratory: denies: shortness of breath Cardiovascular: denies: chest pain Gastrointestinal: denies: abdominal pain, nausea Musculoskeletal: denies: back pain Neurological: denies: headache, weakness ED Past Medical Hx - Past Medical History Hx Hypertension: Yes Hx CVA: Yes Hx Psychiatric Treatment: Yes (depression, dementia) Hx COPD: Yes Hx Dementia: Yes Additional medical history: "I've had a seizure once before".. no meds - Social History Smoking Status: Never Smoker - Medications Home Medications: Home Medications Medication Instructions Recorded Confirmed Last Taken Type ALBUTEROL NEB's [Proventil] 2.5 mg IH Q6H PRN 03/24/16 03/24/16 Unknown History Acetaminophen [Tylenol] 650 mg PO Q6HR PRN 03/24/16 03/24/16 Unknown History Alendronate Sodium [Fosamax] 70 mg PO QAM 03/24/16 03/24/16 Unknown History Budesonide [Pulmicort] 0.5 mg IH Q12HR 03/24/16 03/24/16 Unknown History Divalproex Sodium [Divalproex 250 mg PO BID 03/24/16 03/24/16 Unknown History Sodium ER] Donepezil HCl 5 mg PO QHS 03/24/16 03/24/16 Unknown History ISOSORBIDE MONOnitrate [Imdur ER] 30 mg PO DAILY 03/24/16 03/24/16 Unknown History LORazepam [Ativan] 0.5 mg PO Q6H PRN 03/24/16 03/24/16 Unknown History QUEtiapine [SEROquel] 25 mg PO DAILY 03/24/16 03/24/16 Unknown History QUEtiapine [SEROquel] 25 mg PO Q6H PRN 03/24/16 03/24/16 Unknown History QUEtiapine [SEROquel] 50 mg PO QHS PRN 03/24/16 03/24/16 Unknown History Sertraline HCl [Zoloft] 50 mg PO DAILY 03/24/16 03/24/16 Unknown History Tiotropium [Spiriva] 18 mcg IH QDAY 03/24/16 03/24/16 Unknown History guaiFENesin DM [Robitussin Dm] 10 ml PO Q6HR PRN 03/24/16 03/24/16 Unknown History verapamiL [Calan] 120 mg PO DAILY 03/24/16 03/24/16 Unknown History Nitrofurantoin [place]/M-Cryst 100 mg PO Q12HR #14 capsule 01/08/17 Unknown Rx [Macrobid CAP] ED Physical Exam - General Limitations: Altered Mental Status General appearance: alert, in no apparent distress - Head Head exam: Present: atraumatic, normocephalic, normal inspection - Eye Eye exam: Present: normal appearance - ENT ENT exam: Present: normal exam, normal orophraynx, mucous membranes moist - Neck Neck exam: Present: normal inspection, full ROM. Absent: tenderness, meningismus - Respiratory Respiratory exam: Present: normal lung sounds bilaterally - Cardiovascular Cardiovascular Exam: Present: regular rate, normal rhythm, normal heart sounds - GI/Abdominal GI/Abdominal exam: Present: soft, normal bowel sounds. Absent: distended, tenderness, guarding, rebound, rigid, mass, bruit, pulsatile mass, hernia - Extremities Exam Extremities exam: Present: normal inspection, full ROM, normal capillary refill - Back Exam Back exam: Present: normal inspection, full ROM. Absent: CVA tenderness (R), CVA tenderness (L) - Neurological Exam Neurological exam: Present: alert - Psychiatric Psychiatric exam: Present: normal mood - Skin Skin exam: Present: warm, intact ED Course Vital Signs 07/06/21 07/06/21 07/06/21 16:14 16:15 16:30 Temperature Pulse Rate 75 73 75 Respiratory 15 14 11 L Rate Blood Pressure 188/78 81/60 Blood Pressure [Right] O2 Sat by Pulse 97 99 95 Oximetry 04/07/21 04/07/21 04/07/21 16:34 16:45 16:50 Temperature 98.2 F Pulse Rate 72 74 Respiratory 16 17 18 Rate Blood Pressure 187/98 Blood Pressure 188/78 [Right] O2 Sat by Pulse 100 97 Oximetry 04/07/21 04/07/21 04/07/21 17:01 17:15 17:33 Temperature Pulse Rate 71 71 70 Respiratory 15 12 15 Rate Blood Pressure 207/87 207/87 207/87 Blood Pressure [Right] O2 Sat by Pulse 93 99 98 Oximetry ED Medical Decision Making - Radiology Data Radiology results: report reviewed - Medical Decision Making Ms. Brady is an 89 years old group home resident with history of dementia, hypertension and COPD. Patient brought to the emergency room via EMS from a local group home for evaluation after a fall. Facility staff stated that patient trying to get out of the bed and fell landed on her head. No loss of consciousness according to EMS report. Patient is complaining of pain in the back of her head. She denied any other pain. Patient denied any dizziness, chest pain, shortness of breath, abdominal pain, weakness numbness or tingling sensation. Patient remained stable in the ER. CT brain and CT cervical spine is unremarkable for acute finding. Patient be discharged back to her group home and instruction to follow-up with her primary care physician in the next 2 to 3 days and to return to the ER if patient develop any new symptoms. Critical care attestation.: If time is entered above; I have spent that time in minutes in the direct care of this critically ill patient, excluding procedure time. ED Disposition Clinical Impression: Minor head injury, Fall Disposition: DC-01 TO HOME OR SELFCARE Is pt being admited?: No Condition: Stable Instructions: Head Injury, Adult, [id number], Fall Prevention in the Home, Adult, [id number] Referrals: PRIMARY CARE,MD [Primary Care Provider] - 3-5 Days
--- NOTE | 2021-04-07 17:30 | XRay Report ---
BILATERAL HIP RADIOGRAPHS 3 VIEWS INDICATION / CLINICAL INFORMATION: fall COMPARISON: None available. FINDINGS: BONES / JOINT(S): No acute fracture or subluxation. There is mild degenerative change in both hips an d there is degenerative change in the lower lumbar spine. SOFT TISSUES: No significant abnormality. ADDITIONAL FINDINGS: None. Signer Name: Gavino Bustillo MD Signed: 04/07/2021 5:26 PM Workstation Name: [id number]
--- NOTE | 2021-04-07 17:56 | Cat Scan Report ---
CT HEAD WITHOUT CONTRAST INDICATION / CLINICAL INFORMATION: Fall. TECHNIQUE: All CT scans at this location are performed using CT dose reduction for ALARA by means of automated e xposure control. COMPARISON: 03/03/2021 FINDINGS: There is no acute intracranial hemorrhage. There are periventricular and central white matter areas o f low-attenuation suggesting chronic small vessel disease. Encephalomalacia within the occipital lobe s right greater than left suggesting prior areas of infarct. Old lacunar infarcts are identified. Destin ateral maxillary and sphenoid sinus disease. Ethmoid sinus disease. ADDITIONAL FINDINGS: None. IMPRESSION: 1. Diffuse sinus disease. 2. Chronic parenchymal changes as described above. No significant change Signer Name: Clem Garcia MD Signed: 04/07/2021 5:52 PM Workstation Name: [id number]
--- NOTE | 2021-04-07 18:06 | Cat Scan Report ---
CT CERVICAL SPINE WITHOUT CONTRAST INDICATION / CLINICAL INFORMATION: Fall. Neck injury. Neck pain. TECHNIQUE: Axial CT images were obtained through the cervical spine. Sagittal and coronal reformatted images wer e produced. All CT scans at this location are performed using CT dose reduction for ALARA by means of automated exposure control. COMPARISON: CT cervical spine 03/03/2021 FINDINGS: ALIGNMENT: No significant abnormality. No evidence of traumatic subluxation. VERTEBRAE: No significant abnormality. No indication of fracture or bone destruction. DISC SPACES: Loss of disc height at C2-3, C4-5, C5-6 and C6-7 levels. DEGENERATIVE CHANGES: Anterior and posterior osteophyte formation at C4-5, C5-6 and C6-7 levels. Mode rate central canal stenosis is observed in these locations. Facet and uncovertebral arthropathy contr ibute to multifocal neuroforaminal stenosis. This is most pronounced on the right C4 nerve root level and bilaterally at the C5 nerve root level where severe neuroforaminal stenosis is observed. CRANIOCERVICAL JUNCTION:No significant abnormality. SPINAL CANAL: Moderate central canal stenosis C4-5, C5-6 and C6-7 levels. PARASPINAL SOFT TISSUES: No significant abnormality. ADDITIONAL FINDINGS: Opacification of the visualized portions of the sphenoid sinuses is observed. LUNG APICES: No significant abnormality of visualized lungs. IMPRESSION: 1. No indication of fracture or traumatic subluxation. 2. Widespread cervical spondylosis. 3. No significant interval change in comparison to study dated 03/03/2020. Signer Name: Dani Romero MD Signed: 04/07/2021 6:02 PM Workstation Name: [id number]
[2021-04-07] MEDS ORDERED: cloNIDine 0.1 MG TAB PO ONE (19:36)
[2021-04-07 22:53] VITALS: BP 162/76
== END 2021-04-07 23:00 | disposition home or self-care (01) ==
LOC: ED 15:11
DX: S09.90XA Unspecified injury of head, initial encounter (principal); I10 Essential (primary) hypertension; F32.9 Major depressive disorder, single episode, unspecified; J44.9 Chronic obstructive pulmonary disease, unspecified; F03.90 Unspecified dementia, unspecified severity, without behavioral disturbance, psychotic disturbance, mood disturbance, and anxiety; Z79.899 Other long term (current) drug therapy; W06.XXXA Fall from bed, initial encounter; Y93.89 Activity, other specified; Y92.89 Other specified places as the place of occurrence of the external cause; Y99.8 Other external cause status
CPT/HCPCS: 70450; 72125; 73521